=== PATIENT | female | born 1985 | race Caucasian/White ===

== ENCOUNTER → 2021-10-02 | Day surgery (SDC) | payer OTHER ==
[~2021-10-02] VITALS: Ht 162.6 cm; Wt 104.3 kg
[~2021-10-02] MED LIST: CALCIUM + D3 E1 EACH PO; COLACE100 MG PO; LISINOPRIL5 MG PO; MOTRIN600 MG PO; OMEPRAZOLE 20MG20 MG PO; PERCOCET 5-3251 EACH PO; PRAVACHOL20 MG PO
[2021-10-02 08:12] LABS: HCG (URINE) SCREEN NEGATIVE (NEGATIVE)
[2021-10-02 08:41] LABS: HGB 13.3 g/dl (12.5-16.0); MCH 30.4 pg (25.0-31.0); MCHC 33.3 g/dL (32.0-36.0); MCV 91.3 fL (78.0-100.0); MPV 9.9 fL (6.0-9.5); RBC 4.38 M/uL (4.20-5.40); RDW 12.2 % (11.5-14.0); WBC 7.8 K/uL (4.0-10.5)
[2021-10-02 09:03] LABS: BUN/CREAT RATIO (CALC) 23.4 RATIO; CREATININE 0.64 mg/dL (0.51-0.95); POTASSIUM 4.4 mmol/L (3.5-5.1)
== END | disposition home or self-care (01) ==
LOC: FAS 07:51
PROVIDERS: Anesthesiology; Obstetrics & Gynecology
DX: N72 Inflammatory disease of cervix uteri (principal); N80.0 Endometriosis of uterus; N93.9 Abnormal uterine and vaginal bleeding, unspecified; I10 Essential (primary) hypertension; E66.9 Obesity, unspecified; Z68.39 Body mass index [BMI] 39.0-39.9, adult; Z79.899 Other long term (current) drug therapy; Z91.048 Other nonmedicinal substance allergy status
CPT/HCPCS: 36415; 80048; 84703; 86850; 86900; 86901; J0690; J1100; J1170; J1885; J2250; J2405; J2704; J3010; J7120